=== PATIENT | female | born 1960 | race Caucasian/White ===

== ENCOUNTER → 2021-09-08 09:22 | Outpatient (CLI) | payer OTHER, SELFPAY ==
[2021-09-09 14:24] LABS: Hematocrit 43.1 % (36-46); Hemoglobin 14.2 g/dL (12.0-16.0); Mean Corpuscular HGB Conc 32.9 % (30-36); Mean Corpuscular Hemoglobin 29.8 PG (26-34); Mean Corpuscular Volume 90.5 fL (80-100); Platelet Count 293 X10^3/uL (150-400); Red Blood Cell Count 4.76 X10^6/uL (4.0-5.2); Red Cell Distribution Width 13.4 % (11.6-14.8); White Blood Cell Count 7.8 X10^3/uL (4.5-11.0)
[2021-09-09 14:43] LABS: Add Manual Diff / Slide Review YES
[2021-09-09 15:19] LABS: Neutrophils Absolute Manual 3432 /uL (3000-5900); Total Cells Counted 100
[2021-09-09 17:15] LABS: Alanine Aminotransferase 23 IU/L (<35); Albumin 4.7 g/dL (3.5-5.0); Albumin Globulin Ratio 1.8 (1.0-2.8); Alkaline Phosphatase 116 U/L (38-126); Aspartate Aminotransferase 30 IU/L (14-36); BUN Creatinine Ratio 22.7 (6-22); Bilirubin Total 0.5 mg/dL (0.2-1.3); Blood Urea Nitrogen 20 mg/dL (7-17); Calcium 9.9 mg/dL (8.4-10.2); Carbon Dioxide 30 mmol/L (22-32); Chloride 102 mmol/L (98-107); Cholesterol 264 mg/dL (140-199); Estimated Glomerular Filt Rate > 60.0 mL/min (>60); Globulin 2.6 g/dL (1.7-4.1); Glucose 105 mg/dL (70-100); HDL Cholesterol 93 mg/dL (40-60); HEMOLYSIS < 15 (0-50); LDL Cholesterol Calculated 140 mg/dL (<100); Potassium 4.4 mmol/L (3.4-5.1); Sodium 140 mmol/L (137-145); Total Protein 7.3 g/dL (6.3-8.2); Triglycerides 154 mg/dL (35-150)
== END ==
PROVIDERS: PCP Family Medicine; Visit Provider Family Medicine
DX: I10 Essential (primary) hypertension (principal); E78.2 Mixed hyperlipidemia; Z87.891 Personal history of nicotine dependence
CPT/HCPCS: 80053; 80061; 85007; 85025

== ENCOUNTER → 2021-10-14 12:45 | Outpatient (CLI) | payer OTHER, SELFPAY ==
--- NOTE | 2021-10-14 12:48 | DI.MG.S_ITS ---
BILATERAL DIGITAL SCREENING MAMMOGRAM 3D/2D WITH CAD: 10/14/2021 CLINICAL: Routine screening. Comparison is made to exams dated: 05/13/2016 mammogram - [facility], 09/09/2008 mammogram, and 08/26/2006 mammogram - [facility] [place]. The tissue of both breasts is extremely dense, which lowers the sensitivity of mammography. Current study was also evaluated with a Computer Aided Detection (CAD) system. No significant masses, calcifications, or other findings are seen in either breast. There has been no significant interval change. IMPRESSION: NEGATIVE There is no mammographic evidence of malignancy. A 1 year screening mammogram is recommended. This exam was interpreted at Station ID: [id number]. NOTE: For mammograms, a report in lay terms will be sent to the patient. Approximately 15% of breast malignancies will not be visualized mammographically. In the management of a palpable breast mass, a negative mammogram must not discourage biopsy of a clinically suspicious lesion. Electronically Signed By: Scott Banks M.D., jr/bailey:10/14/2021 16:12:13 letter sent: Normal Exam ACR BI-RADS Category 1: Negative 3341F
--- NOTE | 2021-10-14 12:48 | DI.RAD.S_ITS ---
PROCEDURE: XR DEXA AXIAL SKELETON INDICATIONS: History of osteopenia updated screening COMPARISON: None. FINDINGS: This blank DEXA report has been sent in error by the PACS system. The correct and complete report will be forthcoming in 1-2 days. Thank you for your patience and understanding. Dictated by: Ryanne Babin MD, PhD on 10/14/2021 at 14:33 Approved by: Ryanne Babin MD, PhD on 10/14/2021 at 14:33
--- NOTE | 2021-10-14 12:48 | DI.CT.S_ITS ---
PROCEDURE: CT LUNG LOW DOSE SCREENING INDICATIONS: Chronic smoker 40 pack years needs screening TECHNIQUE: Noncontrast 2.0-2.5 mm thick sections acquired from the pulmonary apices to the posterior costophrenic angles. 7 mm thick axial MIP, and 5 mm coronal and sagittal reformats were then acquired. A low radiation dose technique was utilized. COMPARISON: None. FINDINGS: Image quality: Diagnostic, given the low radiation dose technique. Lungs and pleura: 3 mm solid nodule is seen adjacent to posterior lateral pleura of right upper lobe near apex series 3, image 61. 2 millimeters solid nodule in anterior aspect of right middle lobe is seen series 3, image 196. 2 mm subpleural nodule in posterior right lower lobe is seen series 3, image 196. Scattered linear scarring/atelectasis in periphery of bilateral lower lung blair are seen. No pleural effusion or pneumothorax. Central and peripheral airway is patent. Mediastinum: Heart size is normal. No pericardial effusion. No mediastinal adenopathy by size criteria. Thoracic aorta and central pulmonary arteries are normal in size. Clwr-[id number] atherosclerotic calcifications are seen in coronary vessels and thoracic aorta. Esophagus is normal in caliber. No hiatal hernia. Bones and chest wall: No suspicious bony lesions. No vertebral body compression fractures. No axillary or supraclavicular adenopathy by size criteria. Thyroid gland is within normal limits. Abdomen: Visualized upper abdomen solid organs and bowel loops appear normal in the absence of contrast. IMPRESSION: 1. Tiny solid nodule seen in right lung as described above and measures up to 3 mm in size. Scattered scarring/atelectasis in bilateral lung blair. 2. No mediastinal or hilar lymphadenopathy by size criteria. Lapf-ys-bchougkk atherosclerotic disease. LUNG-RADS 2, benign findings. Annual low-dose screening CT chest follow-up is recommended if clinically indicated. Dictated by: Mateus Arvizu M.D. on 10/14/2021 at 13:37 Approved by: Mateus Arvizu M.D. on 10/14/2021 at 14:46
--- NOTE | 2021-10-14 12:54 | DI.CT.S_ITS ---
PROCEDURE: CT SINUS SCREEN WO CON INDICATIONS: Issues with chronic sinusitis TECHNIQUE: Noncontrast 3.0 mm axial images acquired from the frontal sinuses to the mid-sella, with coronal and sagittal reformats. For radiation dose reduction, the following was used: automated exposure control, adjustment of mA and/or kV according to patient size. COMPARISON: None. FINDINGS: Image quality: Excellent. Paranasal sinuses are normally aerated. No mucosal thickening is identified. 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 1.5 x 1.6 centimeter soft tissue density lesion is associated with the ectopic right upper 3rd molar which is causing expansion and remodeling of the posterior-lateral wall of the right maxillary sinus. No air-fluid levels are identified. The ostiomeatal units are patent bilaterally. Nasal septum is deviated to the right. No yogesh bullosa. Paradoxical right middle turbinate is noted. Atherosclerotic calcifications noted in the cavernous segments of the internal carotid arteries bilaterally. 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 There is a 1.5 x 1.6 centimeter soft tissue density lesion associated with the ectopic right upper 3rd molar with associated expansion remodeling of the adjacent right maxillary sinus wall. Recommend dental consultation. Dictated by: Ryanne Babin MD, PhD on 10/14/2021 at 16:16 Approved by: Ryanne Babin MD, PhD on 10/14/2021 at 16:23
== END ==
PROVIDERS: PCP Family Medicine; Referring Provider Family Medicine; Visit Provider Family Medicine
DX: Z12.31 Encounter for screening mammogram for malignant neoplasm of breast (principal); M81.0 Age-related osteoporosis without current pathological fracture; Z13.83 Encounter for screening for respiratory disorder NEC; I25.10 Atherosclerotic heart disease of native coronary artery without angina pectoris; Z78.0 Asymptomatic menopausal state; J32.9 Chronic sinusitis, unspecified; J34.89 Other specified disorders of nose and nasal sinuses; J34.2 Deviated nasal septum; F17.210 Nicotine dependence, cigarettes, uncomplicated
CPT/HCPCS: 70486; 71250; 77063; 77067; 77080

== ENCOUNTER → 2021-10-30 10:13 | Outpatient (CLI) | payer OTHER, SELFPAY ==
[2021-10-30 19:17] LABS: Add Manual Diff / Slide Review NO; Basophils Absolute Auto 0 /uL (0-100); Basophils Percent Auto 0.5 % (0-2); Eosinophils Absolute Auto 200 /uL (0-450); Hematocrit 42.9 % (36-46); Hemoglobin 14.5 g/dL (12.0-16.0); Lymphocytes Absolute Auto 2700 /uL (1100-4500); Lymphocytes Percent Auto 35.8 % (25-40); Mean Corpuscular HGB Conc 33.8 % (30-36); Mean Corpuscular Hemoglobin 30.3 PG (26-34); Mean Corpuscular Volume 89.8 fL (80-100); Monocytes Absolute Auto 500 /uL (0-900); Neutrophils Absolute Auto 4100 /uL (1500-7000); Neutrophils Percent Auto 54.7 % (50-75); Platelet Count 268 X10^3/uL (150-400); Red Blood Cell Count 4.78 X10^6/uL (4.0-5.2); Red Cell Distribution Width 13.1 % (11.6-14.8); White Blood Cell Count 7.5 X10^3/uL (4.5-11.0)
[2021-10-30 19:21] LABS: Alanine Aminotransferase 24 IU/L (<35); Albumin 4.7 g/dL (3.5-5.0); Albumin Globulin Ratio 1.5 (1.0-2.8); Alkaline Phosphatase 107 U/L (38-126); Aspartate Aminotransferase 33 IU/L (14-36); BUN Creatinine Ratio 20.5 (6-22); Bilirubin Total 0.5 mg/dL (0.2-1.3); Blood Urea Nitrogen 16 mg/dL (7-17); Calcium 10.1 mg/dL (8.4-10.2); Carbon Dioxide 30 mmol/L (22-32); Chloride 105 mmol/L (98-107); Cholesterol 262 mg/dL (140-199); Estimated Glomerular Filt Rate > 60.0 mL/min (>60); Globulin 3.1 g/dL (1.7-4.1); Glucose 109 mg/dL (70-100); HDL Cholesterol 86 mg/dL (40-60); HEMOLYSIS 19 (0-50); LDL Cholesterol Calculated 134 mg/dL (<100); Potassium 4.5 mmol/L (3.4-5.1); Sodium 139 mmol/L (137-145); Total Protein 7.8 g/dL (6.3-8.2); Triglycerides 209 mg/dL (35-150)
[2021-10-30 19:52] LABS: TSH w/ Reflex to FT4 2.21 uIU/mL (0.47-4.68)
== END ==
PROVIDERS: PCP Family Medicine; Visit Provider Family Medicine
DX: E78.2 Mixed hyperlipidemia (principal); I10 Essential (primary) hypertension; M85.88 Other specified disorders of bone density and structure, other site; R73.9 Hyperglycemia, unspecified
CPT/HCPCS: 80053; 80061; 83036; 84443; 85025

== ENCOUNTER → 2022-10-21 14:45 | Outpatient (CLI) | payer OTHER, SELFPAY ==
--- NOTE | 2022-10-21 14:46 | DI.CT.S_ITS ---
PROCEDURE: CT CHEST WO CON INDICATIONS: Lung nodule from September TECHNIQUE: Noncontrast 5 mm thick sections acquired from the pulmonary apices to the posterior costophrenic angles. 1 mm lung window, 5 mm thick coronal and sagittal and 7 mm axial MIP reformats were then acquired. For radiation dose reduction, the following was used: automated exposure control, adjustment of mA and/or kV according to patient size. COMPARISON: [facility], CT, CT LUNG LOW DOSE SCREENING, 10/14/2021, 13:01. FINDINGS: Image quality: Somewhat motion degraded Lungs and pleura: No dense consolidation or effusion. No overtly suspicious nodule. Multiple pulmonary micro nodules are seen on maximum intensity projection images, none measure over 4 mm. Mediastinum, heart, and esophagus: No hiatal hernia. Coronary calcifications. No pathologic adenopathy by size criteria. Atherosclerotic calcifications. Chest wall and thyroid: Unremarkable Upper abdomen: No significant abnormality on limited non-contrast CT evaluation. Bones: Degenerative changes without acute or suspicious osseous finding. IMPRESSION: This was not ordered as a low-dose CT lung cancer screening. No overtly suspicious pulmonary nodule is identified. Continued low-dose annual lung cancer screening is recommended. Other findings as above. Dictated by: William Whitlock M.D. on 10/21/2022 at 16:58 Approved by: William Whitlock M.D. on 10/21/2022 at 17:03
--- NOTE | 2022-10-21 14:47 | DI.MG.S_ITS ---
BILATERAL DIGITAL SCREENING MAMMOGRAM 3D/2D WITH CAD: 10/21/2022 CLINICAL: Routine screening. Comparison is made to exams dated: 10/14/2021 mammogram, 05/13/2016 mammogram - [facility], and 09/09/2008 mammogram - [facility]. Both breasts are extremely dense, which lowers the sensitivity of mammography (category d />75% glandular tissue). Current study was also evaluated with a Computer Aided Detection (CAD) system. No significant masses, calcifications, or other findings are seen in either breast. There has been no significant interval change. IMPRESSION: NEGATIVE There is no mammographic evidence of malignancy. A 1 year screening mammogram is recommended. Based on the Tyrer Cuzick model (a risk assessment model) the patient's lifetime risk is 13.9% and her 10 year risk is 5.7%. According to the ACR, ACS, and NCCN guidelines, an annual breast MRI exam along with mammogram is recommended if the patient's lifetime risk is 20% or greater. This exam was interpreted at Station ID: [id number]. NOTE: For mammograms, a report in lay terms will be sent to the patient. Approximately 15% of breast malignancies will not be visualized mammographically. In the management of a palpable breast mass, a negative mammogram must not discourage biopsy of a clinically suspicious lesion. Electronically Signed By: Scott Banks M.D., jr/bailey:10/21/2022 15:33:39 letter sent: Normal Exam ACR BI-RADS Category 1: Negative 3341F
== END ==
PROVIDERS: PCP Family Medicine; Referring Provider Family Medicine; Visit Provider Family Medicine
DX: R91.1 Solitary pulmonary nodule (principal); I25.10 Atherosclerotic heart disease of native coronary artery without angina pectoris; Z12.31 Encounter for screening mammogram for malignant neoplasm of breast
CPT/HCPCS: 71250; 77063; 77067

== ENCOUNTER → 2023-09-12 09:21 | Outpatient (CLI) | payer OTHER, SELFPAY ==
[2023-09-12 19:08] LABS: Add Manual Diff / Slide Review NO; Basophils Absolute Auto 0 /uL (0-100); Basophils Percent Auto 0.7 % (0-2); Eosinophils Absolute Auto 500 /uL (0-450); Eosinophils Percent Auto 8.4 % (2-4); Hematocrit 39.4 % (36-46); Hemoglobin 13.3 g/dL (12.0-16.0); Lymphocytes Absolute Auto 2100 /uL (1100-4500); Lymphocytes Percent Auto 34.2 % (25-40); Mean Corpuscular HGB Conc 33.8 % (30-36); Mean Corpuscular Hemoglobin 29.9 PG (26-34); Mean Corpuscular Volume 88.6 fL (80-100); Monocytes Absolute Auto 300 /uL (0-900); Monocytes Percent Auto 5.7 % (3-14); Neutrophils Absolute Auto 3200 /uL (1500-7000); Platelet Count 284 X10^3/uL (150-400); Red Blood Cell Count 4.44 X10^6/uL (4.0-5.2); Red Cell Distribution Width 13.3 % (11.6-14.8); White Blood Cell Count 6.2 X10^3/uL (4.5-11.0)
[2023-09-12 19:23] LABS: Alanine Aminotransferase 26 IU/L (<35); Albumin 4.5 g/dL (3.5-5.0); Albumin Globulin Ratio 1.6 (1.0-2.8); Alkaline Phosphatase 112 U/L (38-126); Aspartate Aminotransferase 30 IU/L (14-36); BUN Creatinine Ratio 27.6 (6-22); Bilirubin Total 0.5 mg/dL (0.2-1.3); Blood Urea Nitrogen 21 mg/dL (7-17); Calcium 9.7 mg/dL (8.4-10.2); Carbon Dioxide 30 mmol/L (22-32); Chloride 101 mmol/L (98-107); Cholesterol 244 mg/dL (140-199); Estimated Glomerular Filt Rate > 60 mL/min (>60); Globulin 2.8 g/dL (1.7-4.1); Glucose 99 mg/dL (80-110); HDL Cholesterol 86 mg/dL (40-60); HEMOLYSIS < 15 (0-50); LDL Cholesterol Calculated 129 mg/dL (<100); Potassium 4.5 mmol/L (3.4-5.1); Sodium 137 mmol/L (137-145); Total Protein 7.3 g/dL (6.3-8.2); Triglycerides 143 mg/dL (35-150)
[2023-09-12 19:50] LABS: TSH w/ Reflex to FT4 2.32 uIU/mL (0.47-4.68)
== END ==
PROVIDERS: PCP Family Medicine; Visit Provider Family Medicine
DX: I10 Essential (primary) hypertension (principal); R73.9 Hyperglycemia, unspecified; E78.2 Mixed hyperlipidemia; J32.9 Chronic sinusitis, unspecified
CPT/HCPCS: 80053; 80061; 84443; 85025

== ENCOUNTER → 2023-10-21 11:28 | Outpatient (CLI) | payer OTHER, SELFPAY ==
--- NOTE | 2023-10-21 11:30 | DI.CT.S_ITS ---
PROCEDURE: CT LUNG LOW DOSE SCREENING INDICATIONS: Lung nodule seen on imaging study TECHNIQUE: Noncontrast 2.0-2.5 mm thick sections acquired from the pulmonary apices to the posterior costophrenic angles. 7 mm thick axial MIP, and 5 mm coronal and sagittal reformats were then acquired. For radiation dose reduction, the following was used: automated exposure control, adjustment of mA and/or kV according to patient size. COMPARISON: [facility], CT, CT LUNG LOW DOSE SCREENING, 10/14/2021, 13:01. FINDINGS: Image quality: Diagnostic. Lower Neck: No enlarged lymph nodes. Thyroid: No thyroid nodules which require sonographic follow up, per consensus guidelines. Axillae: No enlarged lymph nodes. Chest Wall: Unremarkable. Bones: Degenerative changes of the spine. Lungs and Pleura: No pneumothorax or pleural effusions. New focus of ground-glass at the right base adjacent to the diaphragm. Stable 3 millimeter subpleural nodule in the posterior lateral right upper lobe (3/67). Stable 2 millimeter nodule within the subpleural anterior right middle lobe (3/196). Stable 2 millimeter nodule within the posterior right lower lobe (3/200). Stable 3 millimeter right upper lobe nodule posteriorly (3/119). New 2 millimeter right middle lobe nodule (3/208). Heart: Heart size is normal. Mild coronary artery calcifications. No pericardial effusion. Thoracic Vessels: The aorta and pulmonary arteries demonstrate normal size. Atherosclerotic vascular calcifications. Mediastinum and Martine: No enlarged lymph nodes. Esophagus: No wall thickening. No hiatal hernia. Upper Abdomen: Visualized upper abdomen solid organs and bowel loops appear normal. IMPRESSION: Stable sub 3 millimeter pulmonary nodules as above and a new 2 millimeter right middle lobe nodule. LUNG-RADS 2; continued annual screening, if eligible. Dictated by: Ethan Crawley M.D. on 10/21/2023 at 16:07 Approved by: Ethan Crawley M.D. on 10/21/2023 at 16:16
--- NOTE | 2023-10-21 11:30 | DI.MG.S_ITS ---
BILATERAL DIGITAL SCREENING MAMMOGRAM 3D/2D WITH CAD: 10/21/2023 CLINICAL: Routine screening. Comparison is made to exams dated: 10/21/2022 mammogram, 10/14/2021 mammogram, and 05/13/2016 mammogram - [facility]. Both breasts are heterogeneously dense, which may obscure small masses (category c / 51-75% glandular tissue). Current study was also evaluated with a Computer Aided Detection (CAD) system. No significant masses, calcifications, or other findings are seen in either breast. There has been no significant interval change. IMPRESSION: NEGATIVE There is no mammographic evidence of malignancy. A 1 year screening mammogram is recommended. Based on the Tyrer Cuzick model (a risk assessment model) the patient's lifetime risk is 9.1% and her 10 year risk is 3.8%. According to the ACR, ACS, and NCCN guidelines, an annual breast MRI exam along with mammogram is recommended if the patient's lifetime risk is 20% or greater. This exam was interpreted at Station ID: [id number]. NOTE: For mammograms, a report in lay terms will be sent to the patient. Approximately 15% of breast malignancies will not be visualized mammographically. In the management of a palpable breast mass, a negative mammogram must not discourage biopsy of a clinically suspicious lesion. Electronically Signed By: William rice/bailey:10/21/2023 12:21:11 letter sent: Normal Exam ACR BI-RADS Category 1: Negative 3341F
== END ==
PROVIDERS: PCP Family Medicine; Referring Provider Family Medicine; Visit Provider Family Medicine
DX: Z12.31 Encounter for screening mammogram for malignant neoplasm of breast (principal); Z87.891 Personal history of nicotine dependence; Z12.2 Encounter for screening for malignant neoplasm of respiratory organs; R91.8 Other nonspecific abnormal finding of lung field
CPT/HCPCS: 71271; 77063; 77067

== ENCOUNTER → 2024-01-05 08:32 | Outpatient (CLI) | payer OTHER, SELFPAY ==
[2024-01-05 20:15] LABS: Cholesterol 216 mg/dL (140-199); HDL Cholesterol 97 mg/dL (40-60); LDL Cholesterol Calculated 86 mg/dL (<100); Triglycerides 166 mg/dL (35-150)
== END ==
PROVIDERS: PCP Family Medicine; Visit Provider Family Medicine
DX: E78.2 Mixed hyperlipidemia (principal)
CPT/HCPCS: 80061